=== PATIENT | male | born 1975 | race African-American/Black ===

== ENCOUNTER 2016-08-08 07:20 | Emergency (ER) | payer BC ==
[~2016-08-08] VITALS: Ht 172.7 cm; Wt 63.5 kg
--- NOTE | 2016-08-08 07:31 | NUR ---
PT IS IN ROOM #2A. DR HONEYCUTT EVALUATED THE PT.
[2016-08-08] MEDS ORDERED: KETOROLAC TROMETHAMINE 30 MG INJ IM ONE (08:30)
--- NOTE | 2016-08-08 08:47 | NUR ---
PT WAS D/C TO HOME AFTER ER MD RE-EVALUATION. D/C INSTRUCTIONS GIVEN TO THE PT.
[2016-08-08 08:49] VITALS: BP 133/72
[2016-08-08] MEDS ORDERED: KETOROLAC TROMETHAMINE 30 MG INJ ONE (08:53)
== END 2016-08-08 08:57 | disposition home or self-care (01) ==
LOC: ER 07:20
DX: S93.402A Sprain of unspecified ligament of left ankle, initial encounter (principal); S90.32XA Contusion of left foot, initial encounter; V24.4XXA Motorcycle driver injured in collision with heavy transport vehicle or bus in traffic accident, initial encounter; Y93.89 Activity, other specified; Y99.8 Other external cause status; Y92.89 Other specified places as the place of occurrence of the external cause
CPT/HCPCS: 29515; 73610; 73630; 96372; 99284; A4217; A4663; J1885